=== PATIENT | female | born 1930 | race Caucasian/White ===

== ENCOUNTER 2018-08-02 10:03 | Day surgery (SDC) | payer BC ==
[2018-08-02 10:49] VITALS: BP 120/63; PULSE 80; TEMP 98; BMI 40.1
[2018-08-02] MEDS ORDERED: IRON SUCROSE INJECTION 200 MG in SODIUM CHLORIDE 100 ML IVPB ONE (11:00)
== END 2018-08-02 11:52 | disposition home or self-care (01) ==
LOC: FINFUSION 10:03 → FM/S 10:04 → FINFUSION 11:52
PROVIDERS: ATTEND Internal Medicine Hematology & Oncology
PROC: 3E033GC Introduction of Other Therapeutic Substance into Peripheral Vein, Percutaneous Approach (ICD-10-PCS; principal; 2018-08-02)
DX: D50.9 Iron deficiency anemia, unspecified (principal)
CPT/HCPCS: 96365; J1756

== ENCOUNTER 2018-08-09 15:35 | Day surgery (SDC) | payer BC ==
[2018-08-09] MEDS ORDERED: IRON SUCROSE INJECTION 200 MG in SODIUM CHLORIDE 100 ML IVPB ONE (15:45)
[2018-08-09 16:47] VITALS: TEMP 98.9; BMI 18.2
[2018-08-09 18:14] VITALS: BP 130/58; PULSE 89
== END 2018-08-09 18:15 | disposition home or self-care (01) ==
LOC: FINFUSION 15:35 → FM/S 15:38 → FINFUSION 18:15
PROVIDERS: ATTEND Internal Medicine Hematology & Oncology
PROC: 3E033GC Introduction of Other Therapeutic Substance into Peripheral Vein, Percutaneous Approach (ICD-10-PCS; principal; 2018-08-09)
DX: D50.9 Iron deficiency anemia, unspecified (principal)
CPT/HCPCS: 96365; 96366; J1756

== ENCOUNTER 2018-08-12 13:40 | Inpatient (IN) | payer BC ==
--- NOTE | 2018-08-12 14:18 | PDOC ---
Attending Attestation - Resident Resident Name: SudeepDom - ED Attending Attestation I have performed the following: I have examined & evaluated the patient, The case was reviewed & discussed with the resident, I agree w/resident's findings & plan, Exceptions are as noted - HPI HPI: 88 yo F presents with moderate to severe LLE pain. She has noted worsening swelling, intermittent cold sensation. She is having difficulty walking due to pain. Denies weakness, numbness. She has had recent weight loss over the past few months. - Physicial Exam PE: GENERAL: Awake, alert, and fully oriented, in no acute distress HEAD: No signs of trauma EYES: PERRLA, EOMI, sclera anicteric, conjunctiva clear ENT: Auricles normal inspection, hearing grossly normal, nares patent, oropharynx clear without exudates. Moist mucosa NECK: Normal ROM, supple, no lymphadenopathy, JVD, or masses LUNGS: Breath sounds equal, clear to auscultation bilaterally. No wheezes, and no crackles HEART: Regular rate and rhythm, normal S1 and S2, no murmurs, rubs or gallops ABDOMEN: Soft, nontender, normoactive bowel sounds. No guarding, no rebound. No masses EXTREMITIES: LLE with 3+ pitting edema to mid-m[place]. Difficult to palpate pulse in foot due to swelling. FROM of the ankle and toes. Remainder of extremities with normal range of motion, no edema. No clubbing or cyanosis. No cords, erythema, or tenderness NEUROLOGICAL: Cranial nerves II through XII grossly intact. Normal speech. Motor and sensation intact. SKIN: Warm, Dry, normal turgor, no rashes or lesions noted. - Medical Decision Making Dopplers obtained to r/o venous and arterial occlusion. Both negative. Will obtain CT to r/o abdominal mass, as she has had recent c/o bloating and weight loss, with these symptoms of lymph obstruction in the LLE.
--- NOTE | 2018-08-12 14:32 | PDOC ---
History of Present Illness - General Chief Complaint: Edema Stated Complaint: LEFT LEG SWELLING Time Seen by Provider: 08/12/18 13:58 History Source: Family - History of Present Illness Initial Comments: 08/12/18 15:41 88F with pmh of endometrial cancer s/p surgery and anemia presents to the ED for left leg swelling for the past month, exacerbated for the past [address] John Abbott 2 weeks ago who placed a compression stocking and prescribed an ultrasound which couldnt be scheduled for a few months. Over the past two weeks she's had decreased mobility and pain in her left leg as well as increased swelling. 08/12/18 16:05 she's holding her legs bent at the knee. Past History - Past Medical History Allergies/Adverse Reactions: Allergies Allergy/AdvReac Type Severity Reaction Status Date / Time No Known Allergies Allergy Verified 08/09/18 16:50 Home Medications: Ambulatory Orders Docusate Sodium [Colace -] 100 mg PO DAILY 08/01/18 Omeprazole 40 mg PO DAILY 08/01/18 Polyethylene Glycol 3350 [Miralax 119 gm Btl -] 17 gm PO DAILY PRN 08/01/18 Primidone 1 tab PO TID 08/01/18 traMADol HCL [Ultram -] 1 tab PO QID 08/01/18 Acetaminophen [Tylenol Extra Strength] 500 mg PO Q8H PRN 08/12/18 Folic Acid 2 mg PO DAILY 08/12/18 Anemia: Yes Cancer: Yes (uterine cancer) COPD: No - Surgical History Cholecystectomy: Yes - Suicide/Smoking/Psychosocial Hx Smoking History: Never smoked Have you smoked in the past 12 months: No Hx Alcohol Use: No Drug/Substance Use Hx: No Substance Use Type: None Hx Substance Use Treatment: No Review of Systems - Review of Systems Able to Perform ROS?: Yes Is the patient limited Dominican proficient: No Constitutional: No: Symptoms Reported, Loss of Appetite HEENTM: No: Symptoms Reported Respiratory: No: Symptoms reported Cardiac (ROS): No: Symptoms Reported ABD/GI: No: Symptoms Reported : No: Symptoms Reported Musculoskeletal: Yes: See HPI Integumentary: No: Symptoms Reported Neurological: No: Symptoms reported *Physical Exam - Vital Signs Last Vital Signs Temp Pulse Resp BP Pulse Ox 98.1 F 110 H 18 143/83 97 08/12/18 13:42 08/12/18 13:42 08/12/18 13:42 08/12/18 13:42 08/12/18 13:42 - Physical Exam General Appearance: Yes: Nourished, Appropriately Dressed. No: Apparent Distress HEENT: positive: EOMI, ANNE, Normal ENT Inspection Neck: negative: Tender Respiratory/Chest: positive: Lungs Clear, Normal Breath Sounds. negative: Chest Tender, Respiratory Distress Cardiovascular: positive: Regular Rhythm, Regular Rate, S1, S2 Vascular Pulses: Dorsalis-Pedis (R): 2+, Doralis-Pedis (L): 0 Gastrointestinal/Abdominal: positive: Normal Bowel Sounds, Flat, Soft. negative : Tender Musculoskeletal: positive: Normal Inspection. negative: CVA Tenderness Extremity: positive: Coldness, Delayed Capillary Refill, Pedal Edema (4+), Calf Tenderness (along the back of the leg and thigh) Integumentary: positive: Pale Neurologic: positive: Alert, Normal Mood/Affect, Normal Response Moderate Sedation - Procedure Monitoring Vital Signs: Procedure Monitoring Vital Signs Temperature 98.1 F 08/12/18 13:42 Pulse Rate 110 H 08/12/18 13:42 Respiratory Rate 18 08/12/18 13:42 Blood Pressure 143/83 08/12/18 13:42 O2 Sat by Pulse Oximetry (%) 97 08/12/18 13:42 ED Treatment Course - LABORATORY CBC & Chemistry Diagram: 08/12/18 14:53 08/12/18 14:53 Medical Decision Making - Medical Decision Making 08/12/18 16:11 88F with pmh of cancer and anemia presents with worsening left leg swelling. Well's score for PE of 6. DVT vs arterial blockage vs lymphadenitis 2nd to cancer. Both venous and arterial doppler are negative for occlusion. Given that the patient refused chemo or radiation in addition to her endometrial cancer surgery we have to rule out possible return of her cancer possibly occluding lymphatic drainage using a Ct abdomen and pelvis with IV contrast. 08/12/18 18:04 CT abdomen shows: an approximately [id number] patially necrotic soft tissuer lesion within the left pelvis consistent with confluent lymphadenopathy. There is associated partial encasement of the traversing left iliac vasculature with swelling of the partially imaged proximal left thigh. Mild to moderate hydronephrosis secondary to ureteral encasement. 08/12/18 18:26 Will admit to hospitalist and page Dr. Heredia/Dr. Valverde. *DC/Admit/Observation/Transfer Diagnosis at time of Disposition: Pelvic lymphadenopathy - Discharge Dispostion Condition at time of disposition: Stable Decision to Admit order: Yes - Referrals Referrals: David Heredia MD [Primary Care Provider] - - Patient Instructions - Post Discharge Activity
[2018-08-12 15:34] LABS: BASO % 1.1 % (0-2.0); EOS % 0.5 % (0-4.5); HEMATOCRIT 29.6 % (32.4-45.2); HEMOGLOBIN 9.6 GM/dl (10.7-15.3); LYMPH % 6.5 % (8-40); MCHC 32.3 g/dl (32.0-36.0); MEAN CELL VOLUME 98.9 fl (80-96); MEAN PLT VOLUME 6.6 fl (7.5-11.1); MONO % 6.5 % (3.8-10.2); NEUT % 85.4 % (42.8-82.8); PLATELET COUNT 744 K/MM3 (134-434); RBC 2.99 M/mm3 (3.60-5.2); RDW 14.1 % (11.6-15.6); WHITE BLOOD COUNT 14.4 K/mm3 (4.0-10.8)
[2018-08-12 15:36] LABS: ALBUMIN 2.2 g/dl (3.5-5.0); ALK PHOS 103 U/L (32-92); ANION GAP 8 MMOL/L (8-16); BILIRUBIN,TOTAL 0.6 mg/dl (0.2-1.0); BLOOD UREA NITROGEN 19 mg/dl (7-18); CALCIUM 8.5 mg/dl (8.4-10.2); CHLORIDE 98 mmol/L (98-107); CO2 28 mmol/L (22-28); CREATININE 0.9 mg/dl (0.6-1.3); GLUCOSE,RANDOM 107 mg/dl (74-106); SGOT/AST 13 U/L (10-42); SGPT/ALT 9 U/L (10-40); SODIUM 134 mmol/L (136-145); TOT PROT 6.1 g/dl (6.4-8.3)
[2018-08-12 17:00] LABS: INR 1.28 (0.82-1.09); PROTHROMBIN TIME (PATIENT) 14.3 SEC (10.2-13.0)
[2018-08-12] MEDS ORDERED: traMADol HCL 50 MG TABLET PO ONE (17:56)
[2018-08-12] MEDS ORDERED: traMADol HCL 50 MG TABLET ONE (17:57)
[2018-08-12 18:31] LABS: PH,URINE 5.5 (4.5-8); URINE APPEARANCE Slightly; URINE BILIRUBIN 1+ (NEGATIVE); URINE COLOR Yellow; URINE GLUCOSE (UA) Negative (NEGATIVE); URINE KETONE Negative (NEGATIVE); URINE LEUK ESTERASE 2+ (NEGATIVE); URINE NITRITE Negative (NEGATIVE); URINE PROTEIN 1+ (NEGATIVE)
[2018-08-12 19:23] LABS: EPI CELLS FEW /HPF; URINE WBC 40-60 (0-5)
[2018-08-12 19:24] LABS: URINE BACTERIA 2+ /hpf (NEGATIVE)
[2018-08-12] MEDS ORDERED: MORPHINE SULFATE 2 MG/ML VIAL IVPUSH PRN (21:32)
--- NOTE | 2018-08-12 21:53 | HP ---
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's Reproductive: Yes: Other (endometrial cancer s/p resection without chemo/radio therapy) - Smoking History Smoking history: Never smoked Have you smoked in the past 12 months: No - Alcohol/Substance Use Hx Alcohol Use: No Home Medications - Allergies Allergies/Adverse Reactions: Allergies Allergy/AdvReac Type Severity Reaction Status Date / Time No Known Allergies Allergy Verified 08/09/18 16:50 - Home Medications Home Medications: Ambulatory Orders Docusate Sodium [Colace -] 100 mg PO DAILY 08/01/18 Omeprazole 40 mg PO DAILY 08/01/18 Polyethylene Glycol 3350 [Miralax 119 gm Btl -] 17 gm PO DAILY PRN 08/01/18 Primidone 1 tab PO TID 08/01/18 traMADol HCL [Ultram -] 1 tab PO QID 08/01/18 Acetaminophen [Tylenol Extra Strength] 500 mg PO Q8H PRN 08/12/18 Folic Acid 2 mg PO DAILY 08/12/18 Review of Systems - Review of Systems Constitutional: reports: Loss of Appetite, Unintentional Wgt. Loss, Weakness Eyes: reports: No Symptoms HENT: reports: No Symptoms Neck: reports: No Symptoms Cardiovascular: reports: No Symptoms Respiratory: reports: No Symptoms Gastrointestinal: reports: Bloating, Constipation Musculoskeletal: reports: Joint Pain, Joint Swelling Integumentary: reports: Blister, Lesions Neurological: reports: No Symptoms Endocrine: reports: No Symptoms Physical Examination Vital Signs: Vital Signs Temperature 98.1 F 08/12/18 13:42 Pulse Rate 90 08/12/18 17:40 Respiratory Rate 17 08/12/18 17:40 Blood Pressure 112/56 L 08/12/18 17:40 O2 Sat by Pulse Oximetry (%) 95 08/12/18 17:40 Constitutional: Yes: Cachectic, Thin Eyes: Yes: WNL, Conjunctiva Clear, EOM Intact HENT: Yes: WNL, Atraumatic, Normocephalic, Other Neck: Yes: WNL, Supple Cardiovascular: Yes: WNL, Regular Rate and Rhythm, S1, S2 Respiratory: Yes: WNL, Regular, CTA Bilaterally Gastrointestinal: Yes: WNL, Normal Bowel Sounds, Soft ...Rectal Exam: Yes: Deferred Labs: CBC, BMP 08/12/18 14:53 08/12/18 14:53 Imaging - Results Chest X-ray: Report Reviewed X-ray: Report Reviewed Ultrasound: Report Reviewed Problem List - Problems (1) Pelvic lymphadenopathy Assessment/Plan: 2/2 to necrotic abdominal mass patient is complaining of constipation Code(s): R59.0 - LOCALIZED ENLARGED LYMPH NODES (2) Venous (peripheral) insufficiency Assessment/Plan: doppler of the ext vascular evaluation elevate leg compression stockings Code(s): I87.2 - VENOUS INSUFFICIENCY (CHRONIC) (PERIPHERAL) (3) Anemia, macrocytic, nutritional Assessment/Plan: patient has a history of decreased PO intake folic acid was low and she was started on 5mg of Folic acid as an out patient Code(s): D52.0 - DIETARY FOLATE DEFICIENCY ANEMIA (4) Failure to thrive in adult Assessment/Plan: patient has decreased po intake 2/2 possible malignancy will start the patient on PO supplementation manager financial systems evaluation increase caloric intake diet Code(s): R62.7 - ADULT FAILURE TO THRIVE (5) Neutrophilia Assessment/Plan: elevated WBC without any signs of infection at this time will hold of on antibiotic treatment until the patient gets fever will send blood cultures and will start broad spectrum antibiotics. Code(s): D72.9 - DISORDER OF WHITE BLOOD CELLS, UNSPECIFIED
[2018-08-13] MEDS: morphine CARPU-JECT 2 MG/1 ML DISP.SYRIN IVPUSH PRN ×3 (06:17→22:14)
[2018-08-13] MEDS ORDERED: VANCOMYCIN 1 GRAM (PRE-DOCKED) 1,000 MG/250 ML BAG IVPB ONE (06:53)
[2018-08-13] MEDS ORDERED: PIPERACILLIN/TAZOB 2.25 GM 2.25 GM in DEXTROSE 5%-WATER - 50 ML IVPB ONE (06:53)
[2018-08-13] MEDS: SODIUM CHLORIDE 1,000 ML IV SCH (07:30)
[2018-08-13 08:59] LABS: HEMATOCRIT 30.4 % (32.4-45.2); HEMOGLOBIN 9.8 GM/dl (10.7-15.3); MCH 32.2 pg (25.7-33.7); MCHC 32.3 g/dl (32.0-36.0); MEAN CELL VOLUME 99.8 fl (80-96); MEAN PLT VOLUME 6.8 fl (7.5-11.1); PLATELET COUNT 714 K/MM3 (134-434); RBC 3.05 M/mm3 (3.60-5.2); RDW 13.9 % (11.6-15.6)
[2018-08-13 09:11] LABS: ALBUMIN 2.3 g/dl (3.5-5.0); ALK PHOS 111 U/L (32-92); ANION GAP 11 MMOL/L (8-16); BILIRUBIN,TOTAL 0.4 mg/dl (0.2-1.0); BLOOD UREA NITROGEN 18 mg/dl (7-18); CALCIUM 8.9 mg/dl (8.4-10.2); CHLORIDE 96 mmol/L (98-107); CO2 28 mmol/L (22-28); CREATININE 0.9 mg/dl (0.6-1.3); GLUCOSE,RANDOM 89 mg/dl (74-106); MAGNESIUM 1.8 mg/dL (1.8-2.4); PHOSPHOROUS 3.4 mg/dl (2.5-4.6); POTASSIUM 4.8 mmol/L (3.5-5.1); SGOT/AST 17 U/L (10-42); SGPT/ALT 10 U/L (10-40); SODIUM 135 mmol/L (136-145); TOT PROT 6.5 g/dl (6.4-8.3)
[2018-08-13 09:46] LABS: PH,URINE 5.5 (4.5-8); URINE APPEARANCE Clear; URINE BILIRUBIN 1+ (NEGATIVE); URINE COLOR Yellow; URINE GLUCOSE (UA) Negative (NEGATIVE); URINE KETONE Trace (NEGATIVE); URINE LEUK ESTERASE 1+ (NEGATIVE); URINE NITRITE Negative (NEGATIVE); URINE PROTEIN 1+ (NEGATIVE)
[2018-08-13] MEDS ORDERED: PIPERACILLIN/TAZOBACTAM 2.25 GM VIAL IVPB ONE (10:14)
[2018-08-13] MEDS ORDERED: DEXTROSE 5%-WATER - 50 ML IVPB ONE (10:15)
[2018-08-13] MEDS: PANTOPRAZOLE 40 MG TABLET (FP) PO SCH (10:27)
[2018-08-13 10:46] LABS: EPI CELLS 1+ /HPF; URINE BACTERIA 2+ /hpf (NEGATIVE)
--- NOTE | 2018-08-13 14:03 | PN ---
Physical Exam: SUBJECTIVE: Patient seen and examined, asleep, arousable, denies pain, currently low grade temp this morning Family at bedside, discussed with patient and family in room re: results from CT scan, necrotric mass, patient wishes not to pursue treatment Family made aware Dr. Heredia (onc) consult placed. Santiago cath inserted this morning due to post void residual of 400cc, urinary retention OBJECTIVE: Vital Signs Period Temp Pulse Resp BP Sys/[place] Pulse Ox Last 24 Hr 98.2 F-100.2 F 90-104 17-18 91-152/56-97 93-95 GENERAL: The patient is awake, alert, and fully oriented, in no acute distress. HEAD: Normal with no signs of trauma. EYES: PERRL, extraocular movements intact, sclera anicteric, conjunctiva clear. No ptosis. ENT: Ears normal, nares patent, oropharynx clear without exudates, moist mucous membranes. NECK: Trachea midline, full range of motion, supple. LUNGS: Breath sounds equal, clear to auscultation bilaterally, no wheezes, no crackles, no accessory muscle use. HEART: Regular rate and rhythm, S1, S2 without murmur, rub or gallop. ABDOMEN: Soft, nontender, nondistended, normoactive bowel sounds, no guarding, no rebound, no hepatosplenomegaly, no masses. EXTREMITIES: Left leg +4 pitting edema, NEUROLOGICAL: Cranial nerves II through XII grossly intact. Normal speech, gait not observed. PSYCH: Normal mood, normal affect. SKIN: Warm, dry, normal turgor, no rashes or lesions noted Laboratory Results - last 24 hr 08/12/18 08/12/18 08/12/18 14:53 14:53 14:53 WBC 14.4 H RBC 2.99 L Hgb 9.6 L Hct 29.6 L MCV 98.9 H MCH 32.0 MCHC 32.3 RDW 14.1 Plt Count 744 H MPV 6.6 L Absolute Neuts (auto) 12.3 Neutrophils % 85.4 H Lymphocytes % 6.5 L Monocytes % 6.5 Eosinophils % 0.5 Basophils % 1.1 PT with INR Cancelled INR Cancelled PTT (Actin FS) Cancelled Sodium 134 L Potassium 5.0 Chloride 98 Carbon Dioxide 28 Anion Gap 8 BUN 19 H Creatinine 0.9 Creat Clearance w eGFR 59.37 Random Glucose 107 H Calcium 8.5 Phosphorus Magnesium Total Bilirubin 0.6 AST 13 ALT 9 L Alkaline Phosphatase 103 H Total Protein 6.1 L Albumin 2.2 L Urine Color Urine Appearance Urine pH Ur Specific Driscoll Urine Protein Urine Glucose (UA) Urine Ketones Urine Blood Urine Nitrite Urine Bilirubin Urine Urobilinogen Ur Leukocyte Esterase Urine RBC Urine WBC Ur Epithelial Cells Urine Bacteria Blood Type Antibody Screen 08/12/18 08/12/18 08/12/18 14:53 16:21 17:35 WBC RBC Hgb Hct MCV MCH MCHC RDW Plt Count MPV Absolute Neuts (auto) Neutrophils % Lymphocytes % Monocytes % Eosinophils % Basophils % PT with INR 14.3 H INR 1.28 H PTT (Actin FS) Sodium Potassium Chloride Carbon Dioxide Anion Gap BUN Creatinine Creat Clearance w eGFR Random Glucose Calcium Phosphorus Magnesium Total Bilirubin AST ALT Alkaline Phosphatase Total Protein Albumin Urine Color Urine Appearance Urine pH Ur Specific [place]coll Urine Protein Urine Glucose (UA) Urine Ketones Urine Blood Urine Nitrite Urine Bilirubin Urine Urobilinogen Ur Leukocyte Esterase Urine RBC Urine WBC Ur Epithelial Cells Urine Bacteria Blood Type O POSITIVE O POSITIVE Antibody Screen Negative 08/12/18 08/13/18 08/13/18 18:26 07:25 07:30 WBC 15.0 H RBC 3.05 L Hgb 9.8 L Hct 30.4 L MCV 99.8 H MCH 32.2 MCHC 32.3 RDW 13.9 Plt Count 714 H MPV 6.8 L Absolute Neuts (auto) Neutrophils % Lymphocytes % Monocytes % Eosinophils % Basophils % PT with INR INR PTT (Actin FS) Sodium Potassium Chloride Carbon Dioxide Anion Gap BUN Creatinine Creat Clearance w eGFR Random Glucose Calcium Phosphorus Magnesium Total Bilirubin AST ALT Alkaline Phosphatase Total Protein Albumin Urine Color Yellow Yellow Urine Appearance Slightly Clear Urine pH 5.5 5.5 Ur Specific Dr[place]coll 1.015 1.010 Urine Protein 1+ H 1+ H Urine Glucose (UA) Negative Negative Urine Ketones Negative Trace Urine Blood Trace-intact H Negative Urine Nitrite Negative Negative Urine Bilirubin 1+ H 1+ H Urine Urobilinogen 1.0 1.0 Ur Leukocyte Esterase 2+ H 1+ H Urine RBC 2-5 3-5 Urine WBC 40-60 10-20 Ur Epithelial Cells Few 1+ Urine Bacteria 2+ 2+ Blood Type Antibody Screen 08/13/18 07:30 WBC RBC Hgb Hct MCV MCH MCHC RDW Plt Count MPV Absolute Neuts (auto) Neutrophils % Lymphocytes % Monocytes % Eosinophils % Basophils % PT with INR INR PTT (Actin FS) Sodium 135 L Potassium 4.8 Chloride 96 L Carbon Dioxide 28 Anion Gap 11 BUN 18 Creatinine 0.9 Creat Clearance w eGFR 59.37 Random Glucose 89 Calcium 8.9 Phosphorus 3.4 Magnesium 1.8 Total Bilirubin 0.4 AST 17 D ALT 10 Alkaline Phosphatase 111 H Total Protein 6.5 Albumin 2.3 L Urine Color Urine Appearance Urine pH Ur Specific Driscoll Urine Protein Urine Glucose (UA) Urine Ketones Urine Blood Urine Nitrite Urine Bilirubin Urine Urobilinogen Ur Leukocyte Esterase Urine RBC Urine WBC Ur Epithelial Cells Urine Bacteria Blood Type Antibody Screen Active Medications Generic Name Dose Route Start Last Admin Trade Name Freq PRN Reason Stop Dose Admin Sodium Chloride 1,000 mls @ 100 mls/hr 08/13/18 07:00 08/13/18 07:30 Normal Saline - IV 100 mls/hr ASDIR ALYSSA Administration Piperacillin Sod/Tazobactam 50 mls @ 100 mls/hr 08/13/18 14:00 Sod 2.25 gm/ Dextrose IVPB Q8H-IV ALYSSA Protocol Morphine Sulfate 1 mg 08/13/18 06:09 08/13/18 06:17 Morphine Injection - IVPUSH 1 mg Q4H PRN Administration PAIN LEVEL 7 - 10 Pantoprazole Sodium 40 mg 08/13/18 10:00 08/13/18 10:27 Protonix - PO 40 mg DAILY ALYSSA Administration ASSESSMENT/PLAN: Anahi Bolanos is a 88 yr old F,medical condition COCO, hx of uterine cancer endometrial cancer s/p resection without chemo/radio therapy admitted for #Pelvic Lymphadenopathy -2/2 to necrotic abdominal mass -CT Scan shows left necrotic mass -Onc consult (Dr. Heredia) #Venous (peripheral) insufficiency,chronic -doppler of the ext -diminished flow w/in Left superficial femoral, popliteal, & tibial arteries -elevate leg -compression stockings -follows with Dr. 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 - New Patient This patient is new to me today: Yes Date on this admission: 08/13/18 - Critical Care Critical Care patient: No
[2018-08-13] MEDS ORDERED: ACETAMINOPHEN 325 MG TABLET (FP) PO PRN (14:04)
[2018-08-13] MEDS: PIPERACILLIN/TAZOB 2.25 GM 2.25 GM in DEXTROSE 5%-WATER - 50 ML IVPB SCH ×2 (14:05→18:34)
[2018-08-13] MEDS: SODIUM CHLORIDE 0.9% 1000 ML INFUS.BAG IV SCH (14:30)
[2018-08-13] MEDS ORDERED: PRIMIDONE 50 MG TABLET PO SCH (15:00)
[2018-08-13] MEDS: POLYETHYLENE GLYCOL 3350 119 GM BTL PO SCH (15:25)
--- NOTE | 2018-08-13 17:26 | EKG ---
Test Reason : Blood Pressure : / mmHG Vent. Rate : 098 BPM Atrial Rate : 098 BPM P-R Int : 150 ms QRS Dur : 070 ms QT Int : 342 ms P-R-T Axes : 061 015 067 degrees QTc Int : 436 ms NORMAL SINUS RHYTHM SEPTAL INFARCT , AGE UNDETERMINED ABNORMAL ECG NO PREVIOUS ECGS AVAILABLE Confirmed by MD MEJIA, TORSTEN ([id number]) on 08/13/2018 5:26:40 PM Referred By: MD MONSON Confirmed By:TORSTEN BA MD
[2018-08-13] MEDS: PRIMIDONE 50 MG TABLET PO SCH (21:18)
[2018-08-14] MEDS ORDERED: DEXTROSE 5%-WATER - 50 ML IVPB ONE ×2 (01:25→09:39)
[2018-08-14] MEDS ORDERED: PIPERACILLIN/TAZOBACTAM 2.25 GM VIAL IVPB ONE ×2 (01:25→09:39)
[2018-08-14] MEDS: PIPERACILLIN/TAZOB 2.25 GM 2.25 GM in DEXTROSE 5%-WATER - 50 ML IVPB SCH ×3 (01:47→17:23)
[2018-08-14] MEDS ORDERED: PT OWN MED DRAWER 7, Y5N ONE (06:10)
[2018-08-14] MEDS: PRIMIDONE 50 MG TABLET PO SCH ×3 (06:12→22:00)
[2018-08-14] MEDS: SODIUM CHLORIDE 1,000 ML IV SCH (07:00)
[2018-08-14] MEDS: PANTOPRAZOLE 40 MG TABLET (FP) PO SCH (09:45)
[2018-08-14 09:47] LABS: BASO % 0.3 % (0-2.0); EOS % 1.4 % (0-4.5); HEMATOCRIT 27.6 % (32.4-45.2); LYMPH % 7.6 % (8-40); MCH 32.2 pg (25.7-33.7); MCHC 32.5 g/dl (32.0-36.0); MEAN CELL VOLUME 99.2 fl (80-96); MEAN PLT VOLUME 6.7 fl (7.5-11.1); MONO % 7.2 % (3.8-10.2); NEUT % 83.5 % (42.8-82.8); PLATELET COUNT 625 K/MM3 (134-434); RBC 2.78 M/mm3 (3.60-5.2); RDW 14.1 % (11.6-15.6); WHITE BLOOD COUNT 12.3 K/mm3 (4.0-10.8)
[2018-08-14 09:48] LABS: ALBUMIN 1.9 g/dl (3.5-5.0); ALK PHOS 101 U/L (32-92); ANION GAP 12 MMOL/L (8-16); BILIRUBIN,TOTAL 0.5 mg/dl (0.2-1.0); BLOOD UREA NITROGEN 19 mg/dl (7-18); CALCIUM 8.3 mg/dl (8.4-10.2); CHLORIDE 97 mmol/L (98-107); CO2 26 mmol/L (22-28); GLUCOSE,RANDOM 78 mg/dl (74-106); MAGNESIUM 1.8 mg/dL (1.8-2.4); POTASSIUM 4.8 mmol/L (3.5-5.1); SGOT/AST 30 U/L (10-42); SGPT/ALT 14 U/L (10-40); SODIUM 135 mmol/L (136-145); TOT PROT 5.6 g/dl (6.4-8.3)
[2018-08-14] MEDS: POLYETHYLENE GLYCOL 3350 119 GM BTL PO SCH (09:55)
[2018-08-14] MEDS: SODIUM CHLORIDE 0.9% 1000 ML INFUS.BAG IV SCH (09:55)
--- NOTE | 2018-08-14 10:45 | CON.ID ---
Consult Consult Specialty:: infectious disease Referred by:: hospitalist Reason for Consultation:: leukocytosis - History of Present Illness Chief Complaint: left lower extremity swelling for 2 weeks History of Present Illness: 88 yo female with anemia, endometrial cancer, s/p hysterectomy 2017- no chemo or RT now with sudden onset of left lower extremity swelling and pain seen in wound care several weeks ago leg has worsened in Ed had duplex- negative for DVT arterial dopplers with diminishe flow to left leg ct scan with necrotic mass left pelvis no fevers urinary retention- now with santiago - History Source History Provided By: Patient, Medical Record Limitations to Obtaining History: Poor Historian - 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 ...: No Heme/Onc: Yes: Cancer (endometrial) - Past Surgical History Past Surgical History: Yes: Hysterectomy - Alcohol/Substance Use Hx Alcohol Use: No - Smoking History Smoking history: Never smoked Have you smoked in the past 12 months: No - Social History Usual Living Arrangement: With Child ADL: Independent History of Recent Travel: No Home Medications - Allergies Allergies/Adverse Reactions: Allergies Allergy/AdvReac Type Severity Reaction Status Date / Time No Known Allergies Allergy Verified 08/09/18 16:50 - Home Medications Home Medications: Ambulatory Orders Docusate Sodium [Colace -] 100 mg PO DAILY 08/01/18 Omeprazole 40 mg PO DAILY 08/01/18 Polyethylene Glycol 3350 [Miralax 119 gm Btl -] 17 gm PO DAILY PRN 08/01/18 Primidone 1 tab PO TID 08/01/18 traMADol HCL [Ultram -] 1 tab PO QID 08/01/18 Acetaminophen [Tylenol Extra Strength] 500 mg PO Q8H PRN 08/12/18 Folic Acid 2 mg PO DAILY 08/12/18 Family Disease History - Family Disease History Family History: Unremarkable Review of Systems - Review of Systems Constitutional: reports: No Symptoms, Unintentional Wgt. Loss, Weakness. denies : Chills, Diaphoresis, Fever Eyes: reports: No Symptoms HENT: reports: No Symptoms Neck: reports: No Symptoms Cardiovascular: reports: No Symptoms. denies: Chest Pain Respiratory: reports: No Symptoms. denies: Cough, SOB Gastrointestinal: reports: No Symptoms. denies: Diarrhea, Vomiting Genitourinary: reports: No Symptoms Physical Exam Vital Signs: Vital Signs Temperature 98.6 F 08/14/18 07:01 Pulse Rate 106 H 08/14/18 07:01 Respiratory Rate 18 08/14/18 08:09 Blood Pressure 137/67 08/14/18 07:01 O2 Sat by Pulse Oximetry (%) 94 L 08/14/18 08:09 Constitutional: Yes: No Distress, Thin Eyes: Yes: Conjunctiva Clear HENT: Yes: Atraumatic, Normocephalic Neck: Yes: Supple Cardiovascular: Yes: Regular Rate and Rhythm Respiratory: Yes: Regular, CTA Bilaterally Gastrointestinal: Yes: Normal Bowel Sounds, Soft ...Rectal Exam: Yes: Deferred Musculoskeletal: Yes: WNL Extremities: Yes: Other (diffuse edema of the RLE extending from the foot to the thigh) Labs: CBC, BMP 08/14/18 06:30 08/14/18 06:30 Imaging - Results Cat Scan: Report Reviewed Problem List - Problems (1) Leukocytosis Code(s): D72.829 - ELEVATED WHITE BLOOD CELL COUNT, UNSPECIFIED (2) Pelvic lymphadenopathy Code(s): R59.0 - LOCALIZED ENLARGED LYMPH NODES (3) Urinary retention Code(s): R33.9 - RETENTION OF URINE, UNSPECIFIED Assessment/Plan d/w hosptialist, per patient wishes, no further treatment is planned f/u cultures, if negative, can d/c zosyn in am consider hospice/palliative care evaluation
--- NOTE | 2018-08-14 14:21 | PN ---
Physical Exam: SUBJECTIVE: Patient seen and examined OBJECTIVE: Vital Signs Period Temp Pulse Resp BP Sys/[place] Pulse Ox Last 24 Hr 98.0 F-98.6 F 101-106 17-19 116-137/52-67 94-95 GENERAL: The patient is awake, alert, and fully oriented, in no acute distress. HEAD: Normal with no signs of trauma. EYES: PERRL, extraocular movements intact, sclera anicteric, conjunctiva clear. No ptosis. ENT: Ears normal, nares patent, oropharynx clear without exudates, moist mucous membranes. NECK: Trachea midline, full range of motion, supple. LUNGS: Breath sounds equal, clear to auscultation bilaterally, no wheezes, no crackles, no accessory muscle use. HEART: Regular rate and rhythm, S1, S2 without murmur, rub or gallop. ABDOMEN: Soft, nontender, nondistended, normoactive bowel sounds, no guarding, no rebound, no hepatosplenomegaly, no masses. EXTREMITIES: 2+ pulses, warm, well-perfused, no edema. NEUROLOGICAL: Cranial nerves II through XII grossly intact. Normal speech, gait not observed. PSYCH: Normal mood, normal affect. SKIN: Warm, dry, normal turgor, no rashes or lesions noted Laboratory Results - last 24 hr 08/13/18 08/14/18 08/14/18 14:15 06:30 06:30 WBC 12.3 H RBC 2.78 L Hgb 9.0 L Hct 27.6 L MCV 99.2 H MCH 32.2 MCHC 32.5 RDW 14.1 Plt Count 625 H MPV 6.7 L Absolute Neuts (auto) 10.3 Neutrophils % 83.5 H Lymphocytes % 7.6 L Monocytes % 7.2 Eosinophils % 1.4 Basophils % 0.3 Sodium 135 L Potassium 4.8 Chloride 97 L Carbon Dioxide 26 Anion Gap 12 BUN 19 H Creatinine 1.0 Creat Clearance w eGFR 52.57 Random Glucose 78 Lactic Acid 1.0 Calcium 8.3 L Magnesium 1.8 Total Bilirubin 0.5 AST 30 D ALT 14 D Alkaline Phosphatase 101 H D Total Protein 5.6 L Albumin 1.9 L Active Medications Generic Name Dose Route Start Last Admin Trade Name Freq PRN Reason Stop Dose Admin Acetaminophen 650 mg 08/13/18 14:04 Tylenol - PO Q6H PRN FEVER Sodium Chloride 1,000 mls @ 100 mls/hr 08/13/18 07:00 08/13/18 07:30 Normal Saline - IV 100 mls/hr ASDIR ALYSSA Administration Piperacillin Sod/Tazobactam 50 mls @ 100 mls/hr 08/13/18 14:00 08/14/18 09:55 Sod 2.25 gm/ Dextrose IVPB 100 mls/hr Q8H-IV ALYSSA Administration Protocol Morphine Sulfate 1 mg 08/13/18 06:09 08/13/18 22:14 Morphine Injection - IVPUSH 1 mg Q4H PRN Administration PAIN LEVEL 7 - 10 Pantoprazole Sodium 40 mg 08/13/18 10:00 08/14/18 09:45 Protonix - PO 40 mg DAILY ALYSSA Administration Polyethylene Glycol 17 gm 08/13/18 15:00 08/14/18 09:55 Miralax (For Daily Use) - PO 17 gm DAILY ALYSSA Administration Primidone 50 mg 08/13/18 22:00 08/14/18 06:12 Mysoline - PO 50 mg TID ALYSSA Administration Sodium Chloride 100 ml 08/13/18 14:15 08/14/18 09:55 Normal Saline - IV 100 ml DAILY ALYSSA Administration ASSESSMENT/PLAN: Anahi Bolanos is a 88 yr old F,medical condition COCO, hx of uterine cancer endometrial cancer s/p resection without chemo/radio therapy admitted for #Pelvic Lymphadenopathy -2/2 to necrotic abdominal mass -CT Scan shows left necrotic mass -Onc consult (Dr. Heredia) #Venous (peripheral) insufficiency,chronic -doppler of the ext -diminished flow w/in Left superficial femoral, popliteal, & tibial arteries -elevate leg -compression stockings -follows with Dr. Abbott #Urinary retention 2/2 pelvic mass -santiago cath inserted #Anemia, macrocytic, nutritional -patient has a history of decreased PO intake -monitor CBC -on folic acid folic acid # Failure to thrive in adult 2/2 possible malignancy -nutritional supp -assistive technology specialist evaluation -increase caloric intake diet #Leukocytosis -wbc 12.3 today -lactic wnl -C/w zosyn q8hrs- can dc in AM if cultures neg -ID consult appreciated -blood cx no growth x 24 hrs -urine cx pending -Ua + leuk, Disposition: requires to be inpatient, DNR/DNI Hospice eval Visit type - Emergency Visit Emergency Visit: Yes ED Registration Date: 08/12/18 Care time: The patient presented to the Emergency Department on the above date and was hospitalized for further evaluation of their emergent condition. - New Patient This patient is new to me today: No - Critical Care Critical Care patient: No
[2018-08-14] MEDS: morphine CARPU-JECT 2 MG/1 ML DISP.SYRIN IVPUSH PRN (19:32)
[2018-08-15] MEDS: PIPERACILLIN/TAZOB 2.25 GM 2.25 GM in DEXTROSE 5%-WATER - 50 ML IVPB SCH ×3 (02:03→17:48)
[2018-08-15] MEDS: PRIMIDONE 50 MG TABLET PO SCH ×3 (05:30→21:42)
[2018-08-15] MEDS ORDERED: PIPERACILLIN/TAZOBACTAM 2.25 GM VIAL IVPB ONE ×3 (09:11→23:43)
[2018-08-15] MEDS ORDERED: DEXTROSE 5%-WATER - 50 ML IVPB ONE ×3 (09:12→23:43)
[2018-08-15 09:14] LABS: ALBUMIN 1.9 g/dl (3.5-5.0); ALK PHOS 111 U/L (32-92); ANION GAP 8 MMOL/L (8-16); BILIRUBIN,TOTAL 0.7 mg/dl (0.2-1.0); BLOOD UREA NITROGEN 17 mg/dl (7-18); CALCIUM 8.3 mg/dl (8.4-10.2); CHLORIDE 100 mmol/L (98-107); CO2 25 mmol/L (22-28); GLUCOSE,RANDOM 102 mg/dl (74-106); MAGNESIUM 1.8 mg/dL (1.8-2.4); POTASSIUM 4.4 mmol/L (3.5-5.1); SGOT/AST 68 U/L (10-42); SGPT/ALT 36 U/L (10-40); SODIUM 133 mmol/L (136-145); TOT PROT 5.6 g/dl (6.4-8.3)
[2018-08-15 09:19] LABS: BASO % 0.1 % (0-2.0); EOS % 0.7 % (0-4.5); HEMATOCRIT 29.3 % (32.4-45.2); HEMOGLOBIN 9.3 GM/dl (10.7-15.3); LYMPH % 5.3 % (8-40); MCH 31.7 pg (25.7-33.7); MCHC 31.8 g/dl (32.0-36.0); MEAN CELL VOLUME 99.6 fl (80-96); MEAN PLT VOLUME 6.8 fl (7.5-11.1); MONO % 4.9 % (3.8-10.2); PLATELET COUNT 681 K/MM3 (134-434); RBC 2.95 M/mm3 (3.60-5.2); RDW 13.9 % (11.6-15.6); WHITE BLOOD COUNT 13.9 K/mm3 (4.0-10.8)
[2018-08-15] MEDS: SODIUM CHLORIDE 1,000 ML IV SCH (09:25)
[2018-08-15] MEDS: POLYETHYLENE GLYCOL 3350 119 GM BTL PO SCH ×2 (09:47→21:42)
[2018-08-15] MEDS: PANTOPRAZOLE 40 MG TABLET (FP) PO SCH (09:47)
[2018-08-15] MEDS: SODIUM CHLORIDE 0.9% 1000 ML INFUS.BAG IV SCH (09:49)
--- NOTE | 2018-08-15 11:29 | PN ---
Physical Exam: SUBJECTIVE: Patient seen and examined at bedside. Family meeting with patient, two daughters, MAYRA Padilla. OBJECTIVE: Vital Signs Period Temp Pulse Resp BP Sys/[place] Pulse Ox Last 24 Hr 97.6 F-98.4 F 94-106 17-20 118-127/46-58 92-94 GENERAL: The patient is awake, alert, and fully oriented, in no acute distress. LUNGS: Breath sounds equal, clear to auscultation bilaterally, no wheezes, no crackles, no accessory muscle use. HEART: Regular rate and rhythm, S1, S2 ABDOMEN: Soft, nontender, nondistended : Tillman catheter EXTREMITIES: LLE 3+ pitting edema to mid-[place] NEUROLOGICAL: Cranial nerves II through XII grossly intact. Normal speech Laboratory Results - last 24 hr 08/15/18 08/15/18 08/15/18 08:23 08:23 08:23 WBC 13.9 H RBC 2.95 L Hgb 9.3 L Hct 29.3 L MCV 99.6 H MCH 31.7 MCHC 31.8 L RDW 13.9 Plt Count 681 H MPV 6.8 L Absolute Neuts (auto) 12.4 Neutrophils % 89.0 H Lymphocytes % 5.3 L Monocytes % 4.9 Eosinophils % 0.7 Basophils % 0.1 Sodium 133 L Potassium 4.4 Chloride 100 Carbon Dioxide 25 Anion Gap 8 BUN 17 Creatinine 1.0 Creat Clearance w eGFR 52.57 Random Glucose 102 D Calcium 8.3 L Magnesium 1.8 Ferritin 390.1 H Total Bilirubin 0.7 AST 68 H D ALT 36 D Alkaline Phosphatase 111 H D Total Protein 5.6 L Albumin 1.9 L Serum Folate 24 H Active Medications Generic Name Dose Route Start Last Admin Trade Name Freq PRN Reason Stop Dose Admin Acetaminophen 650 mg 08/13/18 14:04 Tylenol - PO Q6H PRN FEVER Sodium Chloride 1,000 mls @ 100 mls/hr 08/13/18 07:00 08/15/18 09:25 Normal Saline - IV 100 mls/hr ASDIR ALYSSA Administration Piperacillin Sod/Tazobactam 50 mls @ 100 mls/hr 08/13/18 14:00 08/15/18 09:47 Sod 2.25 gm/ Dextrose IVPB 100 mls/hr Q8H-IV ALYSSA Administration Protocol Morphine Sulfate 1 mg 08/13/18 06:09 08/14/18 19:32 Morphine Injection - IVPUSH 1 mg Q4H PRN Administration PAIN LEVEL 7 - 10 Pantoprazole Sodium 40 mg 08/13/18 10:00 08/15/18 09:47 Protonix - PO 40 mg DAILY ALYSSA Administration Polyethylene Glycol 17 gm 08/13/18 15:00 08/15/18 09:47 Miralax (For Daily Use) - PO 17 gm DAILY ALYSSA Administration Primidone 50 mg 08/13/18 22:00 08/15/18 05:30 Mysoline - PO 50 mg TID ALYSSA Administration Sodium Chloride 100 ml 08/13/18 14:15 08/15/18 09:49 Normal Saline - IV Not Given DAILY ALYSSA ASSESSMENT/PLAN 88 year-old female with a PMH significant for Parkinson's disease, iron- deficiency anemia, and endometrial cancer s/p hysterectomy x 1 year. Admitted for recurrent endometrial cancer and severe malnutrition. Endometrial cancer --11 x 10 x 7cm left pelvic necrotic mass encasing the traversing aterial and venous iliac vasculature --this is a new finding Severe malnutrition --in the setting of endometrial cancer -->5% weight loss in 1 month --thin, frail, cachectic, temporal wasting, protruding clavicles, absence of body fat --Ensure daily --dietary counseling Iron deficiency anemia --IV venofer x 1 prior to discharge Dispo: patient and daughters in agreement comfort measures only. Plan is to discharge to [facility] if accepted. Visit type - Emergency Visit Emergency Visit: Yes ED Registration Date: 08/12/18 Care time: The patient presented to the Emergency Department on the above date and was hospitalized for further evaluation of their emergent condition. - New Patient This patient is new to me today: No - Critical Care Critical Care patient: No - Discharge Referral [facility]erred to [facility] Med P.C.: No
[2018-08-15] MEDS ORDERED: PT OWN MED DRAWER 7, Y5N ONE ×2 (14:08→20:56)
[2018-08-15] MEDS: morphine CARPU-JECT 2 MG/1 ML DISP.SYRIN IVPUSH PRN (14:56)
[2018-08-15 16:27] VITALS: BMI 19.5
[2018-08-15] MEDS ORDERED: IRON SUCROSE INJECTION 100 MG in SODIUM CHLORIDE 95 ML IVPB ONE (18:00)
--- NOTE | 2018-08-15 19:49 | CONSULT ---
Consult Consult Specialty:: heme onc Reason for Consultation:: met dz - History of Present Illness Chief Complaint: FTT, LLE swelling History of Present Illness: 88 yof known to me w h/o COCO, endomet cancer Pt treated w IV iron in past. Subsequently found to have endomet cancer last year and underwent hysterectomy NO recent f/u w [facility] consultant onc or me till last 2 wks. Found to have recurrent iron def and folate def. Resumed venofer and started FA supplement. Family noted clin deterioration w wt loss, poor appetite, ambulation declining. 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 ...: No - Past Surgical History Past Surgical History: Yes: Hysterectomy - Alcohol/Substance Use Hx Alcohol Use: No - Smoking History Smoking history: Never smoked Have you smoked in the past 12 months: No - Social History Usual Living Arrangement: With Child ADL: Independent History of Recent Travel: No Home Medications - Allergies Allergies/Adverse Reactions: Allergies Allergy/AdvReac Type Severity Reaction Status Date / Time No Known Allergies Allergy Verified 08/09/18 16:50 - Home Medications Home Medications: Ambulatory Orders Docusate Sodium [Colace -] 100 mg PO DAILY 08/01/18 Omeprazole 40 mg PO DAILY 08/01/18 Polyethylene Glycol 3350 [Miralax 119 gm Btl -] 17 gm PO DAILY PRN 08/01/18 Primidone 1 tab PO TID 08/01/18 traMADol HCL [Ultram -] 1 tab PO QID 08/01/18 Acetaminophen [Tylenol Extra Strength] 500 mg PO Q8H PRN 08/12/18 Folic Acid 2 mg PO DAILY 08/12/18 Physical Exam Vital Signs: Vital Signs Temperature 97.5 F L 08/15/18 18:00 Pulse Rate 104 H 08/15/18 18:00 Respiratory Rate 18 08/15/18 18:00 Blood Pressure 111/49 L 08/15/18 18:00 O2 Sat by Pulse Oximetry (%) 96 08/15/18 18:00 Constitutional: Yes: Calm, Cachectic Eyes: Yes: WNL HENT: Yes: WNL Neck: Yes: Tenderness Cardiovascular: Yes: Regular Rate and Rhythm Respiratory: Yes: CTA Bilaterally Gastrointestinal: Yes: Soft (mild distension) Edema: Yes Edema: LUE: 1+, RUE: Trace Labs: CBC, BMP 08/15/18 08:23 08/15/18 08:23 Assessment/Plan 88 yof w likely rec enodmet cancer, FTT I d/w pt and her dtr Heather. They understand likely dx. Pt is clear that she wants to pursue comfort measures only; she does not want to undergo bx or any further tx for the mass. Her dtr notes that they are interested in transfer to [place]. Would cont to optimize pain control for pain swelling of LLE; no DVT on imaging pursue comfort, dignified measures d/w team
[2018-08-15] MEDS ORDERED: REFRIGERATED ANITBIOTICS ONE (20:56)
[2018-08-15] MEDS: DOCUSATE SODIUM 100 MG CAPSULE (FP) PO SCH (21:42)
[2018-08-16] MEDS: PIPERACILLIN/TAZOB 2.25 GM 2.25 GM in DEXTROSE 5%-WATER - 50 ML IVPB SCH ×2 (01:28→09:16)
[2018-08-16] MEDS ORDERED: PT OWN MED DRAWER 7, Y5N ONE ×2 (05:45→15:30)
[2018-08-16] MEDS: DOCUSATE SODIUM 100 MG CAPSULE (FP) PO SCH ×2 (05:47→15:34)
[2018-08-16] MEDS: PRIMIDONE 50 MG TABLET PO SCH ×2 (05:47→15:34)
[2018-08-16] MEDS ORDERED: DEXTROSE 5%-WATER - 50 ML IVPB ONE (09:04)
[2018-08-16] MEDS ORDERED: PIPERACILLIN/TAZOBACTAM 2.25 GM VIAL IVPB ONE (09:04)
[2018-08-16] MEDS: PANTOPRAZOLE 40 MG TABLET (FP) PO SCH (09:18)
[2018-08-16] MEDS: POLYETHYLENE GLYCOL 3350 119 GM BTL PO SCH (09:18)
[2018-08-16] MEDS ORDERED: REFRIGERATED ANITBIOTICS ONE (09:30)
[2018-08-16] MEDS ORDERED: IRON SUCROSE INJECTION 100 MG in SODIUM CHLORIDE 95 ML IVPB ONE (10:00)
[2018-08-16 12:51] VITALS: TEMP 98.2
--- NOTE | 2018-08-16 13:18 | DS ---
Physical Exam: SUBJECTIVE: Patient seen and examined OBJECTIVE: Vital Signs Period Temp Pulse Resp BP Sys/[place] Pulse Ox Last 24 Hr 97.5 F-98.5 F 98-104 18-18 111-128/45-59 94-96 PHYSICAL EXAM GENERAL: The patient is awake, alert, and fully oriented, in no acute distress. LUNGS: Breath sounds equal, clear to auscultation bilaterally, no wheezes, no crackles, no accessory muscle use. HEART: Regular rate and rhythm, S1, S2 ABDOMEN: Soft, nontender, nondistended : Tillman catheter EXTREMITIES: LLE 3+ pitting edema to mid-[place] NEUROLOGICAL: Cranial nerves II through XII grossly intact. Normal speech LABS Laboratory Results - last 24 hr 08/15/18 08:23 Iron 26 L CBCD WBC 13.9 K/mm3 (4.0-10.8) H 08/15/18 08:23 RBC 2.95 M/mm3 (3.60-5.2) L 08/15/18 08:23 Hgb 9.3 GM/dl (10.7-15.3) L 08/15/18 08:23 Hct 29.3 % (32.4-45.2) L 08/15/18 08:23 MCV 99.6 fl (80-96) H 08/15/18 08:23 MCHC 31.8 g/dl (32.0-36.0) L 08/15/18 08:23 RDW 13.9 % (11.6-15.6) 08/15/18 08:23 Plt Count 681 K/MM3 (134-434) H 08/15/18 08:23 MPV 6.8 fl (7.5-11.1) L 08/15/18 08:23 CMP Sodium 133 mmol/L (136-145) L 08/15/18 08:23 Potassium 4.4 mmol/L (3.5-5.1) 08/15/18 08:23 Chloride 100 mmol/L (98-107) 08/15/18 08:23 Carbon Dioxide 25 mmol/L (22-28) 08/15/18 08:23 Anion Gap 8 MMOL/L (8-16) 08/15/18 08:23 BUN 17 mg/dl (7-18) 08/15/18 08:23 Creatinine 1.0 mg/dl (0.6-1.3) 08/15/18 08:23 Creat Clearance w eGFR 52.57 (>60) 08/15/18 08:23 Calcium 8.3 mg/dl (8.4-10.2) L 08/15/18 08:23 Total Bilirubin 0.7 mg/dl (0.2-1.0) 08/15/18 08:23 AST 68 U/L (10-42) H D 08/15/18 08:23 ALT 36 U/L (10-40) D 08/15/18 08:23 Alkaline Phosphatase 111 U/L (32-92) H D 08/15/18 08:23 Total Protein 5.6 g/dl (6.4-8.3) L 08/15/18 08:23 Albumin 1.9 g/dl (3.5-5.0) L 08/15/18 08:23 HOSPITAL COURSE: Date of Admission:08/12/18 Date of Discharge: 08/16/18 88 year-old female with a PMH significant for Parkinson's disease, iron- deficiency anemia, and endometrial cancer s/p hysterectomy x 1 year. Admitted for recurrent endometrial cancer and severe malnutrition. Endometrial cancer --11 x 10 x 7cm left pelvic necrotic mass encasing the traversing aterial and venous iliac vasculature, a new finding --has previously refused treatment Severe malnutrition --in the setting of endometrial cancer -->5% weight loss in 1 month --thin, frail, cachectic, temporal wasting, protruding clavicles, absence of body fat --Ensure daily --dietary counseling Iron deficiency anemia --IV venofer x 1 given Patient and daughters in agreement comfort measures only. Minutes to complete discharge: 35 Discharge Summary Reason For Visit: PELVIC LYMPHADENOPATHY Current Active Problems Anemia, macrocytic, nutritional (Acute) Failure to thrive in adult (Acute) Leukocytosis (Acute) Neutrophilia (Acute) Pelvic lymphadenopathy (Acute) Urinary retention (Acute) Condition: Stable - Instructions Referrals: David Heredia MD [Primary Care Provider] - - Home Medications Comprehensive Discharge Medication List: Ambulatory Orders Docusate Sodium [Colace -] 100 mg PO DAILY 08/01/18 Omeprazole 40 mg PO DAILY 08/01/18 Polyethylene Glycol 3350 [Miralax 119 gm Btl -] 17 gm PO DAILY PRN 08/01/18 Primidone 1 tab PO TID 08/01/18 traMADol HCL [Ultram -] 1 tab PO QID 08/01/18 Acetaminophen [Tylenol Extra Strength] 500 mg PO Q8H PRN 08/12/18 Folic Acid 2 mg PO DAILY 08/12/18 This patient is new to me today: No Emergency Visit: Yes ED Registration Date: 08/12/18 Care time: The patient presented to the Emergency Department on the above date and was hospitalized for further evaluation of their emergent condition. Critical Care patient: No - Discharge Referral Referred to [facility] Med P.C.: No
[2018-08-16 14:12] VITALS: BP 106/58; PULSE 99
[2018-08-16] MEDS: SODIUM CHLORIDE 1,000 ML IV SCH (15:58)
[2018-08-16] MEDS: morphine CARPU-JECT 2 MG/1 ML DISP.SYRIN IVPUSH PRN (16:08)
== END 2018-08-16 17:10 | disposition home health service (06) | DRG 754 ==
LOC: FER 13:40 → FM/S 18:31
PROVIDERS: ADMIT Internal Medicine; ATTEND Nurse Practitioner Acute Care
DX: C54.1 Malignant neoplasm of endometrium (principal); E43 Unspecified severe protein-calorie malnutrition; I96 Gangrene, not elsewhere classified; N13.30 Unspecified hydronephrosis; R64 Cachexia; R62.7 Adult failure to thrive; R59.0 Localized enlarged lymph nodes; I87.2 Venous insufficiency (chronic) (peripheral); D52.0 Dietary folate deficiency anemia; D72.9 Disorder of white blood cells, unspecified; Z68.21 Body mass index [BMI] 21.0-21.9, adult; D50.9 Iron deficiency anemia, unspecified; D72.829 Elevated white blood cell count, unspecified; R33.9 Retention of urine, unspecified; R19.00 Intra-abdominal and pelvic swelling, mass and lump, unspecified site; G20 Parkinson's disease
CPT/HCPCS: 36415; 71045-TC-FY; 74177-TC; 80053; 81003; 81015; 82728; 82746; 83540; 83605; 83735; 84100; 85025; 85027; 85610; 86850; 86900; 86901; 87040; 87086; 87899; 93005; 93926-TC; 93971-TC; 97116-GP; 97161-GP; 99283-25; J1756; J7030